=== PATIENT | female | born 1975 | race Caucasian/White ===

== ENCOUNTER → 2020-05-14 | Outpatient (REF) | payer OTHER ==
[~2020-05-14] MED LIST: ANUS2.5C2 TOP; ANUS25SU PR; COLA100C5 PO; MOM30SS PO; MOTR200T44 PO; PRENTAB40 PO; TYLE167L PO; ZOLO100T PO; ZOLO50TA PO
== END ==
LOC: M LAB REF 20:10
PROVIDERS: ATTEND Physician Assistant
DX: J06.9 Acute upper respiratory infection, unspecified (principal)

== ENCOUNTER → 2020-05-15 | Outpatient (CLI) | payer OTHER ==
[2020-05-15 19:26] LABS: BASO % 0.4 % (0.0-1.0); EOS # 0.3 10^3/uL (0.0-0.5); EOS % 6.1 % (0.0-3.0); HEMOGLOBIN 12.1 g/dl (12.0-15.5); LYMPH # 1.5 10^3/uL (1.5-5.0); LYMPH % 30.6 % (24.0-44.0); MEAN CORPUSCULAR HEMOGLOBIN 30.5 pg (27.0-33.0); MEAN CORPUSCULAR HGB CONC 33.6 g/dl (32.0-36.5); MEAN CORPUSCULAR VOLUME 90.7 fl (80.0-96.0); MONO # 0.4 10^3/uL (0.0-0.8); MONO % 7.6 % (0.0-5.0); NEUTROPHILS # 2.7 10^3/uL (1.5-8.5); NEUTROPHILS % 54.9 % (36.0-66.0); PLATELET COUNT, AUTOMATED 218 10^3/uL (150-450); RED BLOOD COUNT 3.97 10^6/uL (4.00-5.40); WHITE BLOOD COUNT 4.9 10^3/uL (4.0-10.0)
[2020-05-15 20:08] LABS: ERYTHROCYTE SEDIMENTATION RATE 10 mm/hr (0-20)
== END ==
LOC: M WUC 15:34
PROVIDERS: ATTEND Physician Assistant
DX: L04.9 Acute lymphadenitis, unspecified (principal); J06.9 Acute upper respiratory infection, unspecified; Z20.828 Contact with and (suspected) exposure to other viral communicable diseases

== ENCOUNTER 2020-10-03 09:45 | Emergency (ER) | payer OTHER ==
[~2020-10-03] VITALS: Ht 172.7 cm; Wt 77.4 kg
[2020-10-03] MEDS ORDERED: VITMTA PO (09:56)
[2020-10-03] MEDS ORDERED: B-12100T2 PO (09:56)
[2020-10-03] MEDS ORDERED: LEXA1TAB2 PO (09:56)
[2020-10-03] MEDS ORDERED: BUSP10TA PO (09:56)
[2020-10-03] MEDS ORDERED: DERMABOND TOPICAL SKIN ADHESIVE TOP ONE (10:25)
[2020-10-03 10:45] VITALS: BP 113/68
[2020-10-03] MEDS ORDERED: CEPH500C PO (10:49)
== END 2020-10-03 10:57 | disposition home or self-care (01) ==
LOC: M ED 09:45
DX: S01.511A Laceration without foreign body of lip, initial encounter (principal); W22.8XXA Striking against or struck by other objects, initial encounter; Y92.018 Other place in single-family (private) house as the place of occurrence of the external cause; F41.9 Anxiety disorder, unspecified; Z79.899 Other long term (current) drug therapy

== ENCOUNTER → 2021-07-28 | Outpatient (CLI) | payer OTHER ==
[~2021-07-28] MED LIST changes: +B-12100T2 PO; +BUSP10TA PO; +CEPH500C PO; +LEXA1TAB2 PO; +VITMTA PO
== END ==
LOC: M PLAIMG 13:30
PROVIDERS: ATTEND Physical Medicine & Rehabilitation
DX: M54.50 Low back pain, unspecified (principal); M48.061 Spinal stenosis, lumbar region without neurogenic claudication; M48.07 Spinal stenosis, lumbosacral region; M51.36 Other intervertebral disc degeneration, lumbar region

== ENCOUNTER → 2021-11-05 | Outpatient (CLI) | payer OTHER | LOC: M WHC 08:39 | PROVIDERS: ATTEND Obstetrics & Gynecology | DX: Z12.31 Encounter for screening mammogram for malignant neoplasm of breast (principal); R92.8 Other abnormal and inconclusive findings on diagnostic imaging of breast ==

== ENCOUNTER → 2021-11-25 | Outpatient (CLI) | payer OTHER | LOC: M WHC 09:01 | PROVIDERS: ATTEND Obstetrics & Gynecology | DX: Z12.31 Encounter for screening mammogram for malignant neoplasm of breast (principal) | CPT/HCPCS: 77065; G0279 ==

== ENCOUNTER → 2022-11-09 | Outpatient (CLI) | payer OTHER | LOC: M WHC 08:55 | PROVIDERS: ATTEND Obstetrics & Gynecology | DX: Z12.31 Encounter for screening mammogram for malignant neoplasm of breast (principal) ==

== ENCOUNTER → 2023-10-13 | Outpatient (REF) | payer OTHER ==
[2023-10-13 14:09] LABS: FERRITIN 94.8 NG/ML (7.3-270.7)
== END ==
LOC: M LAB REF 12:11
PROVIDERS: ATTEND Nurse Practitioner Family
DX: D64.9 Anemia, unspecified (principal)

== ENCOUNTER → 2024-02-23 | Outpatient (CLI) | payer OTHER | LOC: M WUC 11:42 | PROVIDERS: ATTEND Nurse Practitioner Adult Health | DX: M19.012 Primary osteoarthritis, left shoulder (principal) ==

== ENCOUNTER → 2024-05-01 | Outpatient (CLI) | payer OTHER | LOC: M RAD 11:09 | PROVIDERS: ATTEND Nurse Practitioner Adult Health | DX: M25.512 Pain in left shoulder (principal); M75.42 Impingement syndrome of left shoulder; M67.814 Other specified disorders of tendon, left shoulder; S43.432A Superior glenoid labrum lesion of left shoulder, initial encounter; M75.02 Adhesive capsulitis of left shoulder ==